=== PATIENT | male | born 1975 | race American Indian/Alaskan Native ===

== ENCOUNTER 2018-03-18 13:15 | Emergency (ER) | payer SELFPAY ==
[2018-03-18 13:53] LABS: Basophils % (Auto) 0.8 % (0.0-1.8); Eosinophils # (Auto) 0.1 K/mm3 (0.0-0.4); Eosinophils % (Auto) 2.1 % (0.0-4.3); Mean Corpuscular HGB Conc 36 % (32-34); Mean Corpuscular Hemoglobin 33 pg (28-32); Mean Corpuscular Volume 92 fl (84-94); Monocytes # (Auto) 0.6 K/mm3 (0.0-0.8); Monocytes % (Auto) 10.9 % (0.0-7.3); Platelet Count 245 K/mm3 (140-440); Red Blood Count 4.35 M/mm3 (3.65-5.03); Red Cell Distribution Width 13.5 % (13.2-15.2)
[2018-03-18 13:58] LABS: Hematocrit 39.9 % (35.5-45.6); Hemoglobin 14.4 gm/dl (11.8-15.2)
[2018-03-18 14:03] LABS: BUN/Creatinine Ratio 14; Blood Urea Nitrogen 17 mg/dL (9-20); Calcium 9.4 mg/dL (8.4-10.2); Hemolysis Index 5
[2018-03-18] MEDS ORDERED: ATIVAN IM PRN (15:01)
[2018-03-18] MEDS ORDERED: HALDOL IM PRN (15:01)
--- NOTE | 2018-03-18 15:02 | Emergency Department Report ---
ED Psych HPI - General Chief Complaint: Psych Stated Complaint: DEHYDRATED/SUICIDE Time Seen by Provider: 03/18/18 14:56 Source: patient, RN notes reviewed Mode of arrival: Ambulatory Limitations: No Limitations - History of Present Illness Initial Comments: This is a 42-year-old male who is unknown to this provider previously. He presents to the ER with a complaint of suicidality. He reports that he wants to stab himself. He denies overdose. He is also experiencing auditory hallucinations. He denies headache, neck pain, chest pain, abdominal pain, shortness of breath, urinary symptoms. He reports his symptoms are constant, did not radiate anywhere, do not have exacerbating or relieving factors that he is aware. MD Complaint: suicidal ideation, feels depressed, other -: Gradual Associated Psychiatric Symptoms: auditory hallucinations History of same: Yes Quality: constant Improves With: none Worsens With: none If Self Harm: admits thoughts of, has plan - Related Data Allergies Allergy/AdvReac Type Severity Reaction Status Date / Time No Known Allergies Allergy Unverified 03/18/18 13:21 ED Review of Systems ROS: Stated complaint: DEHYDRATED/SUICIDE Other details as noted in HPI Comment: All other systems reviewed and negative ED Past Medical Hx - Past Medical History Hx Psychiatric Treatment: Yes (BIPOLAR SCHIZOPHERNIA) - Surgical History Past Surgical History?: No - Social History Smoking Status: Never Smoker Substance Use Type: Alcohol, Cocaine ED Physical Exam - General Limitations: No Limitations General appearance: alert, in no apparent distress - Head Head exam: Present: atraumatic, normocephalic - Eye Eye exam: Present: normal appearance, EOMI. Absent: nystagmus - ENT ENT exam: Present: normal exam, normal orophraynx, mucous membranes moist, normal external ear exam - Neck Neck exam: Present: normal inspection, full ROM. Absent: tenderness, meningismus - Respiratory Respiratory exam: Present: normal lung sounds bilaterally. Absent: respiratory distress - Cardiovascular Cardiovascular Exam: Present: regular rate, normal rhythm, normal heart sounds. Absent: bradycardia, tachycardia, irregular rhythm, systolic murmur, diastolic murmur, rubs, gallop - GI/Abdominal GI/Abdominal exam: Present: soft, normal bowel sounds. Absent: distended, tenderness, guarding, rebound, rigid, pulsatile mass - Rectal Rectal exam: Present: deferred - Extremities Exam Extremities exam: Present: normal inspection, full ROM, normal capillary refill , other (2+ pulses noted in the bilateral upper, lower extremities. Compartments soft. No long bony tenderness. The pelvis is stable.). Absent: tenderness, pedal edema, joint swelling, calf tenderness - Back Exam Back exam: Present: normal inspection, full ROM. Absent: tenderness, CVA tenderness (R), paraspinal tenderness, vertebral tenderness - Neurological Exam Neurological exam: Present: alert, oriented X3, CN II-XII intact, normal gait, other (Extraocular movements intact. Tongue midline. No facial droop. Facial sensation intact to light touch in the V1, V2, V3 distribution bilaterally. 5 and 5 strength in 4 extremities.. Sensation is intact to light touch in 4 extremities.). Absent: motor sensory deficit - Psychiatric Psychiatric exam: Present: depressed, suicidal ideation - Skin Skin exam: Present: warm, dry, intact, normal color. Absent: rash ED Course Vital Signs 03/18/18 13:21 Temperature 97.8 F Pulse Rate 83 Respiratory 16 Rate O2 Sat by Pulse 100 Oximetry ED Medical Decision Making - Lab Data Result diagrams: 03/18/18 13:34 03/18/18 13:34 Vital Signs 03/18/18 13:21 Temperature 97.8 F Pulse Rate 83 Respiratory 16 Rate O2 Sat by Pulse 100 Oximetry Lab Results 03/18/18 03/18/18 03/18/18 Range/Units 13:34 13:34 13:34 WBC (4.5-11.0) K/mm3 RBC (3.65-5.03) M/mm3 Hgb (11.8-15.2) gm/dl Hct (35.5-45.6) % MCV (84-94) fl MCH (28-32) pg MCHC (32-34) % RDW (13.2-15.2) % Plt Count (140-440) K/mm3 Lymph % (Auto) (13.4-35.0) % Wirt % (Auto) (0.0-7.3) % Eos % (Auto) (0.0-4.3) % Baso % (Auto) (0.0-1.8) % Lymph # (1.2-5.4) K/mm3 Wirt # (0.0-0.8) K/mm3 Eos # (0.0-0.4) K/mm3 Baso # (0.0-0.1) K/mm3 Seg Neutrophils % (40.0-70.0) % Seg Neutrophils # (1.8-7.7) K/mm3 Sodium 140 (137-145) mmol/L Potassium 4.1 (3.6-5.0) mmol/L Chloride 102.1 (98-107) mmol/L Carbon Dioxide 25 (22-30) mmol/L Anion Gap 17 mmol/L BUN 17 (9-20) mg/dL Creatinine 1.2 (0.8-1.5) mg/dL Estimated GFR > 60 ml/min BUN/Creatinine Ratio 14 % Glucose 106 H (75-100) mg/dL Calcium 9.4 (8.4-10.2) mg/dL Salicylates < 0.3 L (2.8-20.0) mg/dL Acetaminophen < 5.0 L (10.0-30.0) ug/mL Plasma/Serum Alcohol (0-0.07) % 03/18/18 03/18/18 Range/Units 13:34 13:34 WBC 5.5 (4.5-11.0) K/mm3 RBC 4.35 (3.65-5.03) M/mm3 Hgb 14.4 (11.8-15.2) gm/dl Hct 39.9 (35.5-45.6) % MCV 92 (84-94) fl MCH 33 H (28-32) pg MCHC 36 H (32-34) % RDW 13.5 (13.2-15.2) % Plt Count 245 (140-440) K/mm3 Lymph % (Auto) 18.0 (13.4-35.0) % Wirt % (Auto) 10.9 H (0.0-7.3) % Eos % (Auto) 2.1 (0.0-4.3) % Baso % (Auto) 0.8 (0.0-1.8) % Lymph # 1.0 L (1.2-5.4) K/mm3 Wirt # 0.6 (0.0-0.8) K/mm3 Eos # 0.1 (0.0-0.4) K/mm3 Baso # 0.0 (0.0-0.1) K/mm3 Seg Neutrophils % 68.2 (40.0-70.0) % Seg Neutrophils # 3.7 (1.8-7.7) K/mm3 Sodium (137-145) mmol/L Potassium (3.6-5.0) mmol/L Chloride (98-107) mmol/L Carbon Dioxide (22-30) mmol/L Anion Gap mmol/L BUN (9-20) mg/dL Creatinine (0.8-1.5) mg/dL Estimated GFR ml/min BUN/Creatinine Ratio % Glucose (75-100) mg/dL Calcium (8.4-10.2) mg/dL Salicylates (2.8-20.0) mg/dL Acetaminophen (10.0-30.0) ug/mL Plasma/Serum Alcohol < 0.01 (0-0.07) % - Medical Decision Making Differential diagnosis, including but not limited to: Depression, mood disorder , suicidality Assessment and plan: 42-year-old female with suicidality. He is afebrile with reassuring vital signs, clinically sober and walks with a steady gait. He is placed on a 1013. His laboratory studies were reviewed and are unremarkable. At this point in time there does not appear to be in immediate medical contraindication to psychiatric evaluation and consultation at this time. The crisis team is paged/ informed. Critical care attestation.: If time is entered above; I have spent that time in minutes in the direct care of this critically ill patient, excluding procedure time. ED Disposition Clinical Impression: Medical clearance for psychiatric admission Disposition: [id number] PSY HOSP/PSY UNIT Is pt being admited?: No Does the pt Need Aspirin: No Condition: Good
[2018-03-18 19:25] LABS: Bilirubin,Urine NEG (Negative); Blood,Urine NEG (Negative); Color,Urine Yellow (Yellow); Mucus,Urine FEW /HPF; Protein,Urine <15 mg/dL mg/dL (Negative); Urobilinogen,Urine < 2.0 mg/dL (<2.0)
[2018-03-18 19:34] LABS: Amphetamine Screen,Urine PRESUMPTIVE NEGATIVE; Benzodiazepines Screen,Urine PRESUMPTIVE NEGATIVE; Cannabinoid Screen,Urine PRESUMPTIVE NEGATIVE; Methadone Screen,Urine PRESUMPTIVE NEGATIVE; Opiate Screen,Urine PRESUMPTIVE NEGATIVE
[2018-03-18 19:50] LABS: Cocaine Screen,Urine PRESUMPTIVE POSITIVE
--- NOTE | 2018-03-20 13:31 | Consultation ---
History of Present Illness - Reason for Consult Consult date: 03/20/18 Reason for consult: Mental Health Evaluation Requesting physician: YU THAKKAR - Chief Complaint Chief complaint: "I am hearing voices" - History of Present Psychiatric Illness 42 y.o. AA male presenting to the ER for SI's and AH's. Today the patient is calm with a circumstantial thought process during the assessment. He stated getting into argument at his job that exacerbated his depression. He stated that he constantly hear voices, so this argument also exacerbated the voices he experience. He stated that the voices tells him to kill himself. He would not confirm or deny a suicide plan when asked. He stated that he haven't been taking his medications (Trazodone and Risperdal) in a year. He stated that he don't feel safe at this time and want help for his "mental illness." He stated having erratic sleep, but denies a poor appetite. He denies HI's and VH's. He stated that he use recreational drugs sometimes, but denies alcohol consumption (etoh). Medications and Allergies Allergies Allergy/AdvReac Type Severity Reaction Status Date / Time No Known Allergies Allergy Unverified 03/18/18 13:21 Home Medications Medication Instructions Recorded Confirmed Last Taken Type Unobtainable 03/18/18 03/18/18 Unknown History Active Meds: Active Medications Haloperidol Lactate (Haldol) 5 mg IM Q6HR PRN PRN Reason: Agitation Lorazepam (Ativan) 2 mg IM Q4HR PRN PRN Reason: Agitation Past psychiatric history - Past Medical History Past Medical History: No medical history Past Surgical History: No surgical history - past Psychiatric treatment and history psychiatric treatment history: Several inpatient psy settings in the past. Denies a fam psy hx. - Social History Social history: other (Homeless) Mental Status Exam - Vital signs Last Vital Signs Temp 97.8 F 03/20/18 11:27 Pulse 65 03/20/18 11:27 Resp 16 03/20/18 11:28 BP 123/84 03/20/18 11:27 Pulse Ox 100 03/20/18 11:28 - Exam Narrative exam: MSE: Appearance: calm, cooperative Behavior: regular eye contact Speech: regular rate and tone Mood: "something isn't right with me" Affect: flat Thought Process: circumstantial Thought Content: denies HI's and VH's Motor Activity: ambulatory Cognition: A/O x 3 Insight: variable Judgment: poor Results Result Diagrams: 03/18/18 13:34 03/18/18 13:34 All other labs normal. Assessment and Plan Assessment and plan: Impression: Unspecified Mood DO with psy features. Substance Use DO (cocaine). Today the patient is calm with a circumstantial thought process during the assessment. The patient endorses SI's. DDx: Bipolar DO with psychosis, R/O MDD with psychosis, R/O Substance Induced Mood DO Recommendation/Plan: Continue 1013 with placement to inpatient psy services. Start Risperdal 1 mg PO HS for mood/psychosis and Trazodone 50 mg PO HS for sleep. Discussed possible metabolic side effects of Risperdal with patient. Discussed possible suicidality/medication induced jean-paul/priapism with patient reference Trazodone.
[2018-03-20 19:16] LABS: Albumin 4.1 g/dL (3.9-5)
[2018-03-20 19:37] LABS: Bilirubin,Direct 0.2 mg/dL (0-0.2)
[2018-03-20 21:21] LABS: Bilirubin,Urine NEG (Negative); Blood,Urine NEG (Negative); Color,Urine Straw (Yellow); Protein,Urine <15 mg/dL mg/dL (Negative); Urobilinogen,Urine < 2.0 mg/dL (<2.0)
[2018-03-20 21:22] LABS: WBC,Urine < 1.0 /HPF (0.0-6.0)
[2018-03-20 21:31] LABS: Amphetamine Screen,Urine PRESUMPTIVE NEGATIVE; Benzodiazepines Screen,Urine PRESUMPTIVE NEGATIVE; Cannabinoid Screen,Urine PRESUMPTIVE NEGATIVE; Cocaine Screen,Urine PRESUMPTIVE NEGATIVE; Methadone Screen,Urine PRESUMPTIVE NEGATIVE; Opiate Screen,Urine PRESUMPTIVE NEGATIVE
[2018-03-20] MEDS: RisperDAL PO SCH (22:16)
[2018-03-20] MEDS: DESYREL PO SCH (22:16)
--- NOTE | 2018-03-21 13:11 | Progress Note ---
Subjective - Reason for Consult Consult date: 03/21/18 Reason for consult: Psychiatry Follow-up - Chief Complaint Chief complaint: "I feel better" 42 y.o. AA male presenting to the ER for SI's and AH's. Today the patient is calm and cooperative during the assessment. He stated that he slept well last night. He stated that the voices have "decreased." He could not elaborate about what the voices are saying when asked. He denies SI/HI and VH's. He denies any side effects of his medication. Mental Status Exam - Vital signs Last Vital Signs Temp 97.8 F 03/21/18 08:51 Pulse 66 03/21/18 08:51 Resp 16 03/21/18 08:51 BP 99/68 03/21/18 08:51 Pulse Ox 98 03/21/18 08:51 - Exam Narrative exam: MSE: Appearance: calm, cooperative Behavior: regular eye contact Speech: regular rate and tone Mood: "better" Affect: congruent to mood Thought Process: circumstantial Thought Content: denies SI/HI's and VH's, intermittent AH's Motor Activity: ambulatory Cognition: A/O x 3 Insight: variable Judgment: variable Assessment and Plan Impression: Unspecified Mood DO with psy features. Substance Use DO (cocaine). Today the patient is calm and cooperative during the assessment. The patient endorses SI's. DDx: Bipolar DO with psychosis, R/O MDD with psychosis, R/O Substance Induced Mood DO Recommendation/Plan: Continue 1013 with placement to inpatient psy services. Continue Risperdal 1 mg PO HS for mood/psychosis and Trazodone 50 mg PO HS for sleep. Discussed possible metabolic side effects of Risperdal with patient. Discussed possible suicidality/medication induced jean-paul/priapism with patient reference Trazodone.
[2018-03-21] MEDS: RisperDAL PO SCH (23:23)
[2018-03-21] MEDS: DESYREL PO SCH (23:23)
[2018-03-22 15:03] VITALS: BP 100/64
== END 2018-03-22 16:04 ==
LOC: EEVIPCON 13:15 → ED 13:15
DX: F31.89 Other bipolar disorder (principal); F14.10 Cocaine abuse, uncomplicated; Z59.0 Homelessness
CPT/HCPCS: 36415; 80048; 80074; 80307; 81001; 85025; 99285; G0480; 80320